=== PATIENT | male | born 1960 | race Caucasian/White ===

== ENCOUNTER 2019-11-24 06:06 | Day surgery (SDC) | payer BC ==
[2019-11-23 10:40] VITALS: BMI 37.9
[2019-11-24] MEDS ORDERED: Heparin (Artline) 1,000 ML ONE (06:40)
[2019-11-24] MEDS ORDERED: Lidocaine 1% (PF) 30 ML VIAL ONE (06:40)
[2019-11-24 06:42] LABS: #Basophils 0.1 thou/uL (0.0-0.2); #Eosinphils 0.4 thou/uL (0.0-0.7); #Lymphocytes 2.6 thou/uL (1.20-3.40); #Monocytes 0.9 thou/uL (0.11-0.59); #Neutrophils 4.9 thou/uL (1.40-6.50); %Basophils 0.8 % (0.0-1.0); %Monocytes 9.9 % (0.0-10.0); %Neutrophils 55.4 % (42.0-75.0); Hemoglobin 15.2 g/dL (14.0-18.0); Mean Corpuscular HGB CONC 33.6 g/dL (32.0-36.0); Mean Corpuscular Volume 92.1 fL (78.0-98.0); Mean Platelet Volume 8.5 fL (7.4-10.4); Platelet Count 253 thou/uL (130-400); RBC Distribution Width 11.9 % (11.5-14.5); Red Blood Cell (RBC) Count 4.91 mill/uL (4.70-6.10); White Blood Cell (WBC) Count 8.8 thou/uL (4.8-10.8)
[2019-11-24 06:51] LABS: INR-International Normal Ratio 1.1; PTT 33.7 SEC (22.9-36.1); Prothrombin Time 13.9 SEC (12.0-14.7)
[2019-11-24 07:05] LABS: Anion Gap 10 mmol/L (10-20); BUN (Urea Nitrogen) 23 mg/dL (8.4-25.7); Calc. Creatinine Clearance 180 mL/min (70-130); Calcium 9.5 mg/dL (7.8-10.44); Carbon Dioxide 31 mmol/L (22-29); Cardiac Risk 4.3 (Less than 4.5); Chloride 102 mmol/L (98-107); Cholesterol 132 mg/dl (< 200 Desired); Estimated GFR-MDRD 78; Glucose 119 mg/dL (70-105); HDL Cholesterol 31 mg/dL (>60 Neg Risk); LDL Cholesterol, Calculated 88 mg/dL; Sodium 139 mmol/L (136-145); Triglycerides 67 mg/dL (Less than 150)
[2019-11-24] MEDS ORDERED: Fentanyl 100 MCG/2 ML VIAL ONE (07:29)
[2019-11-24] MEDS ORDERED: Midazolam HCl 2 mg/2 ml Vial ONE (07:29)
[2019-11-24] MEDS ORDERED: hydrALAZINE 20 MG/ML VIAL ONE (08:08)
[2019-11-24] MEDS ORDERED: Iopamidol 370 76% 100 ML VIAL ONE (09:03)
[2019-11-24] MEDS ORDERED: Enalaprilat Dihydrate 1.25 MG/ML VIAL ONE (09:18)
[2019-11-24] MEDS ORDERED: Lisinopril 10 MG TAB ONE (11:58)
--- NOTE | 2019-11-24 17:00 | EKG ---
Test Reason : PREOP Blood Pressure : / mmHG Vent. Rate : 045 BPM Atrial Rate : 045 BPM P-R Int : 240 ms QRS Dur : 102 ms QT Int : 510 ms P-R-T Axes : 045 009 026 degrees QTc Int : 441 ms Sinus bradycardia with 1st degree A-V block Otherwise normal ECG Confirmed by ELLIS LOPEZ ([id number]) on 11/24/2019 4:59:49 PM Referred By: MANINDER Confirmed By:ELLIS LOPEZ
== END 2019-11-24 13:58 | disposition home or self-care (01) ==
LOC: CCL 06:06
PROVIDERS: ATTEND Internal Medicine Cardiovascular Disease
PROC: 4A023N7 Measurement of Cardiac Sampling and Pressure, Left Heart, Percutaneous Approach (ICD-10-PCS; principal; 2019-11-24)
PROC: B2111ZZ Fluoroscopy of Multiple Coronary Arteries using Low Osmolar Contrast (ICD-10-PCS; principal; 2019-11-24)
DX: I51.7 Cardiomegaly (principal); I34.0 Nonrheumatic mitral (valve) insufficiency; I10 Essential (primary) hypertension; E11.9 Type 2 diabetes mellitus without complications; E78.00 Pure hypercholesterolemia, unspecified; Z79.899 Other long term (current) drug therapy; Z87.891 Personal history of nicotine dependence; Z88.5 Allergy status to narcotic agent
CPT/HCPCS: 76942; 80048; 80061; 85025; 85610; 85730; 93005; 93010; 93458; 99152; C1769; J0360; J1644; J2001; J2250; J3010; Q9967

== ENCOUNTER 2023-12-03 12:52 | Outpatient (CLI) | payer BC ==
[2023-12-03 15:03] LABS: #Basophils 0.1 10x3/uL (0.0-0.2); #Eosinphils 0.4 10x3/uL (0.0-0.5); #Monocytes 0.9 10x3/uL (0.0-1.1); #Neutrophils 4.8 10x3/uL (1.5-8.4); %Basophils 0.9 % (0.0-2.0); %Eosinophils 4.1 % (0.0-6.0); %Lymphocytes 26.4 % (18.0-47.0); %Monocytes 10.3 % (0.0-10.0); %Neutrophils 56.6 % (40.0-75.0); Hematocrit 42.2 % (38.8-50.0); Hemoglobin 14.9 g/dL (13.5-17.5); Mean Corpuscular HGB CONC 35.3 g/dL (32.0-36.0); Mean Corpuscular Hemoglobin 31.2 pg (27.0-33.0); Mean Corpuscular Volume 88.3 fl (81.2-95.1); Mean Platelet Volume 11.7 fl (7.4-10.4); Platelet Count 249 10x3/uL (150-450); RBC Distribution Width 13.9 % (11.5-14.5); Red Blood Cell (RBC) Count 4.78 10x6/uL (4.32-5.72); White Blood Cell (WBC) Count 8.5 10x3/uL (3.5-10.5)
[2023-12-03 15:09] LABS: INR-International Normal Ratio 1.1; Prothrombin Time 11.4 sec (9.5-12.1)
[2023-12-03 15:26] LABS: Anion Gap 14 mmol/L (10-20); BUN (Urea Nitrogen) 15 mg/dL (8.4-25.7); Calc. Creatinine Clearance 0 mL/min (70-130); Calcium 9.4 mg/dL (7.8-10.44); Carbon Dioxide 26 mmol/L (23-31); Chloride 103 mmol/L (98-107); Estimated GFR 91; Glucose 108 mg/dL (80-115); Sodium 139 mmol/L (136-145)
== END 2023-12-03 12:53 | disposition home or self-care (01) ==
LOC: LABBT 12:52
PROVIDERS: ATTEND Orthopaedic Surgery
DX: Z01.818 Encounter for other preprocedural examination (principal); T84.012A Broken internal right knee prosthesis, initial encounter
CPT/HCPCS: 80048; 85025; 85610; 87081; 93005; 93010

== ENCOUNTER 2023-12-03 13:30 | Inpatient (IN) | payer BC ==
[2023-12-07] MEDS ORDERED: Sodium Chloride 0.9% 100 ML ONE ×2 (06:13→06:58)
[2023-12-07] MEDS ORDERED: Tranexamic Acid 1,000 MG/10 ML VIAL ONE (06:13)
[2023-12-07] MEDS ORDERED: fentaNYL PF 100 MCG/2 ML SYRINGE ONE (06:23)
[2023-12-07] MEDS ORDERED: Midazolam HCl 2 mg/2 ml Vial ONE (06:23)
[2023-12-07] MEDS ORDERED: PROPOFOL 20 ML ONE ×2 (06:23→07:12)
[2023-12-07] MEDS ORDERED: Lidocaine 2% 6 ML (Jelly) SYR ONE (06:24)
[2023-12-07] MEDS ORDERED: Lidocaine 1% PF 5 ML VIAL ONE (06:24)
[2023-12-07] MEDS ORDERED: Dexamethasone 20 MG/5 ML VIAL ONE (06:24)
[2023-12-07] MEDS ORDERED: Ondansetron PF 4 MG/2 ML Vial ONE (06:24)
[2023-12-07] MEDS ORDERED: Vancomycin (BATCH) 2 GM in Premix 1 BAG IVPB SCH (06:30)
[2023-12-07] MEDS ORDERED: Promethazine HCl 25 MG/ML VIAL IM PRN ×2 (06:38→06:51)
[2023-12-07] MEDS ORDERED: Ondansetron HCl/PF 4 MG/2 ML Vial IVP PRN (06:38)
[2023-12-07] MEDS ORDERED: HYDROmorphone 2 MG/ML VIAL SLOW IVP PRN (06:38)
[2023-12-07] MEDS ORDERED: Ketorolac Tromethamine 30 MG/ML VIAL IVP PRN (06:38)
[2023-12-07] MEDS ORDERED: Vancomycin 1 GM VIAL ONE (06:41)
[2023-12-07] MEDS ORDERED: Tobramycin Sulfate 1.2 GM VIAL ONE (06:41)
[2023-12-07] MEDS ORDERED: EPINEPHrine 1 MG/ML VIAL ONE (06:41)
[2023-12-07] MEDS ORDERED: Bupivacaine PF 0.5% 30 ML VIAL ONE ×2 (06:42→07:52)
[2023-12-07] MEDS ORDERED: Ondansetron PF 4 MG/2 ML Vial IVP PRN (06:51)
[2023-12-07] MEDS ORDERED: Acetaminophen 325 MG TAB PO PRN (06:51)
[2023-12-07] MEDS ORDERED: fentaNYL 50 mcg/mL 1 mL Vial SLOW IVP PRN ×2 (06:51)
[2023-12-07] MEDS ORDERED: diphenhydrAMINE 25 MG CAP PO PRN (06:51)
[2023-12-07] MEDS ORDERED: CEFAZOLIN 2 GM VIAL ONE (06:57)
[2023-12-07] MEDS ORDERED: ePHEDrine Sulfate 50 MG/10 ML VIAL ONE (07:29)
[2023-12-07] MEDS ORDERED: Tirzepatide [Mounjaro] 5 MG/0.5 ML Pen.Injctr SC SCH (07:30)
[2023-12-07] MEDS ORDERED: Lidocaine 1% (PF) 30 ML VIAL ONE (07:51)
[2023-12-07] MEDS ORDERED: Ropivacaine 0.2% 550 ML 550 ML NERVE BLCK SCH (08:00)
[2023-12-07] MEDS ORDERED: traMADol HCl 50 MG TAB PO PRN ×2 (08:00)
[2023-12-07] MEDS: Aspirin 81 mg Enteric Coated Tablet PO SCH ×2 (11:22→11:59)
[2023-12-07] MEDS: Ketorolac Tromethamine 30 MG (1 mL) VIAL IVP SCH (11:48)
[2023-12-07] MEDS: Lisinopril 20 MG TAB PO SCH (11:58)
[2023-12-07] MEDS: hydrALAZINE 25 MG TAB PO SCH (11:59)
[2023-12-07] MEDS: Sodium Chloride 0.9% 1,000 ML IV SCH (11:59)
[2023-12-07] MEDS: Empagliflozin 10 MG TAB PO SCH (11:59)
[2023-12-07] MEDS: Carvedilol 25 MG TAB PO SCH (11:59)
[2023-12-07] MEDS: Hydrochlorothiazide 25 MG TAB PO SCH (11:59)
[2023-12-07] MEDS ORDERED: MINERAL OIL/WHITE PETROLATUM 3.5 GM TUBE ONE (12:13)
[2023-12-07] MEDS ORDERED: Ketorolac Tromethamine 30 MG (1 mL) VIAL IVP SCH (14:00)
[2023-12-07] MEDS: CEFAZOLIN 2 GM in Sodium Chloride 0.9% 100 ML IVPB SCH (15:20)
[2023-12-07 15:56] VITALS: BMI 37.8
[2023-12-07] MEDS: oxyCODONE 5 MG TAB PO PRN (16:22)
[2023-12-07] MEDS: Sertraline 100 MG TAB PO SCH (20:46)
[2023-12-07] MEDS: Rosuvastatin 10 MG TAB PO SCH (20:47)
[2023-12-07] MEDS: HYDROcodone/Acetaminophen 10/325 mg Tablet PO PRN (20:47)
[2023-12-08] MEDS: Zolpidem Tartrate 5 MG TAB PO PRN (00:21)
[2023-12-08 04:56] LABS: Hematocrit 38.9 % (42.0-52.0); Hemoglobin 13.1 g/dL (14.0-18.0); Mean Corpuscular HGB CONC 33.7 g/dL (32.0-36.0); Mean Corpuscular Hemoglobin 30.4 pg (27.0-31.0); Mean Corpuscular Volume 90.3 fl (78.0-98.0); Mean Platelet Volume 10.7 fL (7.4-10.4); Platelet Count 240 10x3/uL (130-400); RBC Distribution Width 14.3 % (11.5-14.5); Red Blood Cell (RBC) Count 4.31 mill/uL (4.70-6.10); White Blood Cell (WBC) Count 19.4 10x3/uL (4.8-10.8)
[2023-12-08 07:46] VITALS: TEMP 97.7
[2023-12-08] MEDS: Senokot S 8.6-50 MG TAB PO SCH (10:13)
[2023-12-08] MEDS: Ferrous Gluconate 324 MG TAB PO SCH (10:14)
[2023-12-08] MEDS: Multivitamin W/ Minerals 1 TAB PO SCH (10:14)
[2023-12-08] MEDS: HYDROcodone/Acetaminophen 10/325 mg Tablet PO PRN (10:14)
[2023-12-08 10:15] VITALS: BP 138/80
== END 2023-12-08 12:08 | disposition home or self-care (01) | DRG 468 ==
LOC: SURG A 12-07 05:51 → SJJU 12-07 10:07 → EDSTATUS 12-07 13:30
PROVIDERS: ADMIT Orthopaedic Surgery; ATTEND Orthopaedic Surgery
PROC: 0SPV0JZ Removal of Synthetic Substitute from Right Knee Joint, Tibial Surface, Open Approach (ICD-10-PCS; principal; 2023-12-07)
PROC: 0SRV0JZ Replacement of Right Knee Joint, Tibial Surface with Synthetic Substitute, Open Approach (ICD-10-PCS; 2023-12-07)
DX: T84.012A Broken internal right knee prosthesis, initial encounter (principal); I10 Essential (primary) hypertension; K21.9 Gastro-esophageal reflux disease without esophagitis; E03.9 Hypothyroidism, unspecified; M10.9 Gout, unspecified; Y83.8 Other surgical procedures as the cause of abnormal reaction of the patient, or of later complication, without mention of misadventure at the time of the procedure; Z96.653 Presence of artificial knee joint, bilateral; E66.01 Morbid (severe) obesity due to excess calories; E78.5 Hyperlipidemia, unspecified; Z87.891 Personal history of nicotine dependence; Z68.37 Body mass index [BMI] 37.0-37.9, adult
CPT/HCPCS: 36415; 85027; A4306; J0171; J0665; J1100; J1885; J2001; J2250; J2405; J2704; J2795; J3260; J3370; J3490